=== PATIENT | female | born 1940 | race Caucasian/White ===

== ENCOUNTER → 2018-07-22 11:22 | Outpatient (CLI) | payer MEDICARE, OTHER, SELFPAY ==
[2016-10-27 14:29] VITALS: BMI 29.0
[2018-07-22 11:45] LABS: Absolute Lymphocyte Count 1.31 X10^3/ul (0.83-4.51); Absolute Neutrophil Count 1.4 X10^3/uL (2.0-7.7); Basophil# 0.05 X10^3/uL; Basophil% 1.3 % (0-1); Eosinophil# 0.25 X10^3/uL; Eosinophils% 6.6 % (0-5); Hematocrit 34.3 % (37-47); Lymphocyte # 1.31 X10^3/ul (4.0); Lymphocyte % 34.4 % (19-41); Mean Corp Hgb Conc 32.1 g/gl (32-36); Mean Corpuscular Hgb 28.9 pg (27.0-32.0); Mean Platelet Vol. 11.8 fl (6.2-12.0); Monocyte# 0.81 X10^3/uL; Monocyte% 21.3 % (0-10); Neutrophil # 1.38 X10^3/uL (2.7-7.7); Neutrophil % 36.1 % (47-70); Platelet Count 109 K/mm3 (150-450); RBC Distribution Width CV 14.1 % (11.6-14.6); RBC Distribution Width SD 45.4 fl (35.1-43.9); Red Blood Count 3.81 M/mm3 (4.2-5.4); White Blood Count 3.8 K/mm3 (4.4-11.0)
[2018-07-22 11:46] LABS: POSITIVE COUNT NO; POSITIVE DIFFERENTIAL NO; POSITIVE MORPHOLOGY NO
== END ==
PROVIDERS: PCP Internal Medicine; Visit Provider Internal Medicine Hematology & Oncology
DX: C50.412 Malignant neoplasm of upper-outer quadrant of left female breast (principal)
CPT/HCPCS: 85025

== ENCOUNTER 2019-01-15 09:17 | Day surgery (SDC) | payer MEDICARE, SELFPAY ==
--- NOTE | 2019-01-12 12:03 | HP.PCM_ITS ---
Problem List (1) Endometrial mass Status: Acute History and Physical Date of Admission: 01/15/19 Yumi Mckeon Physician [employer] SAL[employer] CONSULTANT H&P Signed Encounter Date: 01/12/2019 Expand All Collapse All Hide copied text Sadi for details Kayy Trujillo is a 78 year old female who presents for pre op visit. Pt had Pelvic us due to pain- incidentally found to have endometrial mass with vascular flow present. Pt has h/p bone mets from primary breast cancer and is currently enrolled in clinical trial. Pt denies any vaginal bleeding at this time. Pt denies CP, SOB, dizziness. ? ? PAST?MEDICAL?HISTORY PAST MEDICAL HISTORY Diagnosis Date ? Bone cancer (HCC) ? ? GERD (gastroesophageal reflux disease) ? ? PMH - PAST MEDICAL HISTORY OF 2002 ? BREAST CANCER ? S/P left mastectomy ? ? for breast cancer ? PAST?SURGICAL?HISTORY PAST SURGICAL HISTORY Procedure Laterality Date ? COLONOSCOP W/ OR W/O BRSH SPEC ? 06/26/2018 ? Colonoscopy ? HYSTEROSCOPY BX W/WO D&C ? 04/2012 ? PAST SURGICAL HISTORY OF ? 2002 ? MASTECTOMY left ? REMOVAL OF TONSILS,<12 Y/O ? ? ? Tonsillectomy ? TUNNEL VAD W SUB Q PORT >=5 Right 12/10/2016 ? Right IJ power port 6 Fr ? FAMILY?HISTORY FAMILY HISTORY Problem Relation Age of Onset ? Aneurysm Mother ? ? Hypertension Father ? ? Coronary Artery Disease Father ? ? Cancer Paternal Aunt ? ? Cancer Paternal Aunt ? ? Coronary Artery Disease Sister ? ? irregular heartbeat ? Stroke Brother ? ? 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 CURRENT?MEDICATIONS ? Current Outpatient Medications: EXEMESTANE ORAL Take by mouth. potassium phosphate, monobasic (K-PHOS ORIGINAL) 500 mg tablet Take 1 tablet by mouth three times daily. levothyroxine (SYNTHROID) 50 mcg tablet Take 1 tablet by mouth once daily. heparin 100 unit/mL injection Access implanted vascular access device (IVAD) as needed for flush, blood draw or treatment. Before de-accessing port, flush with 10-20ml normal saline and follow with 5 mL heparin (100 units/mL) (if no heparin allergy). De-access port on treatment completion. OTC NUTRITIONAL SUPPLEMENT [employer] nutritional supplements vitamin b complex tab Take 1 tablet by mouth once daily. ondansetron (ZOFRAN) 8 mg tablet Take 1 tablet by mouth every 8 hours as needed. cetirizine (ZYRTEC) 10 mg tablet Take 10 mg by mouth once daily as needed. omeprazole (PRILOSEC) 20 mg capsule Take 20 mg by mouth once daily as needed. miSOPROStol (CYTOTEC) 200 mcg tablet Take two tablets PO night before procedure and two tablets morning of procedure 0.9 % sodium chloride (0.9% NACL) Access implanted vascular access device (IVAD) as needed for flush, blood draw or treatment.Flush IVAD with 10-20 mL NS every 4 weeks and PRN when IVAD not in use. COMPOUNDED PRESCRIPTION LEFT BREAST MASTECTOMY PROSTHESIS BRAS DX Z90.12 ? No current facility-administered medications for this visit. Allergies As of Date: 01/12/2019 Allergen Noted Reaction ENVIRONMENTAL [OTHER] 11/16/2005 IODINE 11/16/2005 Swelling and Shortness of Breath LATEX, NATURAL RUBBER 11/09/2011 Itching NOVACAINE [OTHER] 11/16/2005 PROCAINE 10/24/2016 Swelling ? Fully Assessed 01/12/2019 ? ? REVIEW OF SYSTEMS Abdomen: intermittent pelvic pain Bladder: no dysuria .. Expanded ROS: GENERAL: Negative for fever Allergies and current medication updated:Yes ? EXAM: BP 132/60 Ht 5' 1.5 (1.56m) Wt 144 lb (65.3kg) BMI 26.77 kg/(m^2). ? GENERAL: pleasant, female in no apparent distress HEENT: Normocephalic and atraumatic NECK: full range of motion DERMATOLOGY: Normal, without lesions and non-icteric CARDIAC: regular rate with occasional ectopic beats CHEST: Clear to auscultation Normal inspiratory effort NEURO: alert and oriented x3,exam grossly non-focal ? ASSESSMENT AND PLAN: Encounter Diagnosis ? ? ICD-10-CM ? 1. Endometrial mass N94.89 ? ? 2. Pt has been counseled on risks/benefits and alternatives of surgery including but not limited to anesthesia, bleeding, infection, injury to pelvic structures including bowel, bladder, ureters and vessels. Pt wishes to proceed with surgery at this time. 3. Pt understands risks- would like to proceed- does have h/o METS but wants to know what mass is- malignant or benign. Reviewed would notify Oncologist of results 4. Pt has medication for pain post op 5. Cytotec ordered 6. ? Yumi Castellon MD ?
[2019-01-15] VITALS (7 sets, daily range): BP systolic 94–110; BP diastolic 38–61; PULSE 68–83; RESP 14–16; TEMP 36.4–37.2; O2SAT 97–100; BMI 26.5
--- NOTE | 2019-01-15 | EMB_PTH ---
PATIENT: CAROLYN ACE [place] [facility] [id number] AGE/SX: 78/F ROOM: RE01/15/[address]: Dr. Yumi Castellon, MDDOB: 1940 BED: DIS: 01/15/2019 SPEC #: [id number] RECD: 01/15/19 13:06 STATUS: KAYLIN SUDHAKAR #: [id number] KULDEEP: 01/15/19 00:[address]: Yumi Castellon DEPT: SURGICAL PATHOLOGY RECD BY: Harlan Rodrigues ENTERED: 01/15/19 13:06 SP TYPE: ENDOM BX/C OTHR DR: Dr. Rena Sales MD Tissues: Endometrium, NOS Procedures: Surgery Specimen Level IV HEADER OPERATION: Hysteroscopy, D & C, Symphion PRE-OP DIAGNOSIS: Endometrial mass TISSUE SUBMITTED: Endometrial mass MICROSCOPIC DIAGNOSIS Endometrial mass, biopsy: Fragments of superficial endometrium with cystic atrophy. See comment. AM:ashley 01/16/19 COMMENT The fragments may represent portions of endometrial polyp. Clinical correlation is suggested. MICROSCOPIC DESCRIPTION Slides are reviewed. GROSS DESCRIPTION Received in fixative is one container labeled with the patient's name and designated endometrial mass. The specimen consists of multiple irregular fragments of light mcclain soft tissue that in aggregate measure 1.5 x 0.5 x 0.1 cm. The specimen is totally submitted in one cassette. / AM:ashley 01/15/19 TC:5 CPT: 56367
--- NOTE | 2019-01-15 09:39 | EKG12_ITS ---
Test Reason : PRE OP Blood Pressure : / mmHG Vent. Rate : 075 BPM Atrial Rate : 075 BPM P-R Int : 176 ms QRS Dur : 092 ms QT Int : 396 ms P-R-T Axes : 065 -10 035 degrees QTc Int : 442 ms Normal sinus rhythm Voltage criteria for left ventricular hypertrophy Abnormal ECG When compared with ECG of 23-OCT-2016 20:17, Fusion complexes are no longer Present Premature ventricular complexes are no longer Present Confirmed by PERCY JACKSON ([id number]), assistant production editor TO WILKERSON ([id number]) on 01/19/2019 4:55:42 PM Referred By: Yumi Castellon Confirmed By:SETH JACKSON
[2019-01-15 10:48] LABS: Anion Gap 4 (5-15); BUN 15 mg/dL (7-18); Calcium,Total 8.4 mg/dL (8.5-10.1); Chloride 107 mmol/L (98-107); Creatinine, Serum 0.68 mg/dL (0.55-1.02); EST Glomerular Filtration Rate 89 mL/min (>60); Est Glom Filt Rate - Afr Amer 107 mL/min (>60); Estimated Creatinine Clearance 35.55 ml/min; Glucose 88 mg/dL (74-106); Potassium 4.2 mmol/L (3.5-5.1); Sodium Level 140 mmol/L (136-145)
--- NOTE | 2019-01-15 11:25 | PCM.OPRPT ---
Problem List (1) Endometrial mass Status: Acute Report of Operation Date of Procedure: 01/15/19 Pre-Operative Diagnosis: endometrial mass Post-Operative Diagnosis: same Surgery/Procedure Performed:: hysteroscopy, D&C with symphion Description of Surgical Findings:: Atrophic endometrium with fundal endometrial mass- hard. small posterior mass. 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 She was given anesthesia. She was then placed in the [facility] where she was prepped and draped in the normal sterile fashion. Bladder drained with straight catheter approx 30cc. At this time the weighted speculum was placed in the posterior fornix of vagina. Single-tooth tenaculum was used to gently grasp the anterior lip the cervix. Gentle dilatation was performed once adequate dilatation of the cervix was achieved the hysteroscope using normal saline as a distention medium was placed. Atrophic endometrium noted with mass noted on fundal aspect and one posterior aspect. Tubal ostia visualized. Sypmhion used to remove portion of mass at fundal aspect and posterior- unable to get entire fundal mass due to location- reviewed with patient she is asymptomatic- no vaginal bleeding- wanted tissue diagnosis. At This time hysteroscopy was complete. This will be sent to pathology for evaluation. Procedure was deemed complete successful there are no complications. Anticipated normal postoperative course. Instrument lap count correct ?2. Vaginal Sweep was negative. Grafts/Implants Used: none - Complications none - Admit VTE Documentation VTE Present on Admission: Yes VTE Mechan Device Prophylaxis: SCD's VTE Pharm Prophylaxis ordered?: No
--- NOTE | 2019-01-15 11:30 | OP.PCM_ITS ---
Problem List (1) Endometrial mass Status: Acute Report of Operation Date of Procedure: 01/15/19 Pre-Operative Diagnosis: endometrial mass Post-Operative Diagnosis: same Surgery/Procedure Performed:: hysteroscopy, D&C with symphion Description of Surgical Findings:: Atrophic endometrium with fundal endometrial mass- hard. small posterior mass. 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 She was given anesthesia. She was then placed in the [facility] where she was prepped and draped in the normal sterile fashion. Bladder drained with straight catheter approx 30cc. At this time the weighted speculum was placed in the posterior fornix of vagina. Single-tooth tenaculum was used to gently grasp the anterior lip the cervix. Gentle dilatation was performed once adequate dilatation of the cervix was achieved the hysteroscope using normal saline as a distention medium was placed. Atrophic endometrium noted with mass noted on fundal aspect and one posterior aspect. Tubal ostia visualized. Sypmhion used to remove portion of mass at fundal aspect and posterior- unable to get entire fundal mass due to location- reviewed with patient she is asymptomatic- no vaginal bleeding- wanted tissue diagnosis. At This time hysteroscopy was complete. This will be sent to pathology for evaluation. Procedure was deemed complete successful there are no complications. Anticipated normal postoperative course. Instrument lap count correct ?2. Vaginal Sweep was negative. Grafts/Implants Used: none - Complications none - Admit VTE Documentation VTE Present on Admission: Yes VTE Mechan Device Prophylaxis: SCD's VTE Pharm Prophylaxis ordered?: No
--- NOTE | 2019-01-15 11:31 | DCINST_ITS ---
Discharge Diet: No Restrictions Discharge Activity: Return to Normal Activity, May Shower, May Take a Tub Bath - in 2 weeks. Call your doctor if you observe: Fever of 101 or Higher, Using more than one pad per hour, Uncontrolled pain Allergies/Adverse Reactions: Allergies iodine Allergy (Verified 01/09/19 08:10) Swelling Latex, Natural Rubber Allergy (Verified 01/09/19 08:10) Rash procaine [From Novocain] Allergy (Verified 01/09/19 08:10) swelling, pass out Medications to take at Discharge Cetirizine HCl [Zyrtec] 10 mg PO DAILY PRN 01/09/19 Entinostat 1 tab PO Q7D 01/09/19 Exemestane 25 mg PO DAILY 01/09/19 Folic Acid/B Cmplx C/Rice Bran [Vitamin B-Complex & C Caplet] 1 each PO DAILY 01/09/19 Levothyroxine Sodium [Synthroid] 50 mcg PO DAILY 01/09/19 Neolise 1 pkg PO DAILY 01/09/19 Omeprazole [Prilosec] 20 mg PO PRN PRN 01/09/19 Ondansetron HCl [Zofran] 4 mg PO PRN PRN 01/09/19 Potassium Phosphate,Monobasic [K-Phos Original] 500 mg PO TID 01/09/19 Zometa 1 dose SC Q3M 01/09/19 Primary Care Physician: Rena Sales MD [Primary Care Provider] - Test Results: Test results from this visit will be discussed in further detail at your follow- up appointment, if applicable. Please Follow Up With: Yumi Castellon MD When: as scheduled in 2 weeks
[2019-01-15] MEDS: HYDROcodone Bitartrate/Apap 5/325 Tablet PO (12:11)
== END 2019-01-15 14:10 | disposition home or self-care (01) ==
LOC: SDC 09:23 → AC 09:25
PROVIDERS: Family Provider Internal Medicine; PCP Internal Medicine; Referring Provider Obstetrics & Gynecology; Visit Provider Obstetrics & Gynecology
PROC: 0UB98ZZ Excision of Uterus, Via Natural or Artificial Opening Endoscopic (ICD-10-PCS; CPT 58558; principal; 2019-01-15 10:25)
DX: N94.89 Other specified conditions associated with female genital organs and menstrual cycle (principal); N85.8 Other specified noninflammatory disorders of uterus; C50.919 Malignant neoplasm of unspecified site of unspecified female breast; C78.02 Secondary malignant neoplasm of left lung; C79.51 Secondary malignant neoplasm of bone; Z90.12 Acquired absence of left breast and nipple; K21.9 Gastro-esophageal reflux disease without esophagitis; Z82.49 Family history of ischemic heart disease and other diseases of the circulatory system; Z88.8 Allergy status to other drugs, medicaments and biological substances
CPT/HCPCS: 58558; 80048; 88305; 93005; J7120; A4216

== ENCOUNTER → 2019-08-03 09:52 | Outpatient (CLI) | payer MEDICARE, SELFPAY ==
[2019-01-15 09:44] VITALS: BMI 26.5
--- NOTE | 2019-08-03 09:54 | RAD_ITS ---
STUDY: X-RAY - ESOPHAGUS (BARIUM SWALLOW) WITH FLUOROSCOPY REASON FOR EXAM: Female, 79 years old. Dysphagia for solids. TECHNIQUE: 23 fluoroscopic view(s) of the esophagus were obtained following swallowing of barium. FLUOROSCOPY TIME (if supplied): (0:47) minutes/seconds COMPARISON: None. FINDINGS: There is no demonstrated esophageal foreign body. There is no demonstrated stricture or mucosal abnormality. Small sliding hiatal hernia without reflux. A circumferential web is seen at the gastroesophageal junction. The patient ingest a 12 mm tablet at bedtime. The tablet is trapped at the gastroesophageal junction. There is atherosclerotic calcification of the aortic arch with tortuosity of the descending aorta. Normal visualized pulmonary parenchyma. There are diffuse degenerative changes of the visualized thoracic spine. RAD/Esophagus Only IMPRESSION: Small sliding hiatal hernia with web formation and trapping of the 12 mm tablet of barium at the gastroesophageal junction. Electronically Signed: Shola Machuca, at 12:22 EST , Service support ,
== END ==
PROVIDERS: Family Provider Internal Medicine; PCP Internal Medicine; Referring Provider Internal Medicine Hematology & Oncology; Visit Provider Internal Medicine Hematology & Oncology
DX: R13.10 Dysphagia, unspecified (principal); C50.919 Malignant neoplasm of unspecified site of unspecified female breast; C34.90 Malignant neoplasm of unspecified part of unspecified bronchus or lung; C79.9 Secondary malignant neoplasm of unspecified site
CPT/HCPCS: 74220

== ENCOUNTER → 2020-08-01 13:15 | Outpatient (CLI) | payer MEDICARE, SELFPAY ==
[2019-01-15 09:44] VITALS: BMI 26.5
[2020-08-01 13:42] LABS: Hematocrit 35.7 % (37-47); Hemoglobin 11.3 g/dL (12.0-15.0); Mean Corp Hgb Conc 31.7 g/dL (32-36); Mean Corpuscular Hgb 30.8 pg (27.0-32.0); Mean Corpuscular Volume 97.3 fL (81-99); Mean Platelet Vol. 9.9 fl (6.2-12.0); Platelet Count 247 K/mm3 (150-450); RBC Distribution Width CV 14.3 % (11.6-14.6); RBC Distribution Width SD 50.9 fl (35.1-43.9); Red Blood Count 3.67 M/mm3 (4.2-5.4); White Blood Count 3.6 K/mm3 (4.4-11.0)
[2020-08-01 13:57] LABS: International Normalized Ratio 1.1; Prothrombin Time (Protime)PT. 13.3 SECONDS (11.7-14.9)
[2020-08-01 13:58] LABS: Partial Thromboplast Time 35.3 Seconds (24.1-36.2)
== END ==
LOC: MEDOUTP 08-02 10:34 → EN 08-02 10:34 → MEDOUTP 08-02 10:34
PROVIDERS: PCP Internal Medicine; Referring Provider Internal Medicine Critical Care Medicine; Visit Provider Internal Medicine Critical Care Medicine
DX: J84.9 Interstitial pulmonary disease, unspecified (principal); N94.89 Other specified conditions associated with female genital organs and menstrual cycle
CPT/HCPCS: 36415; 36591; 85027; 85610; 85730; A4216

== ENCOUNTER 2020-08-05 10:58 | Day surgery (SDC) | payer MEDICARE, SELFPAY ==
[2020-08-05] VITALS (8 sets, daily range): BP systolic 110–150; BP diastolic 54–80; PULSE 72–78; RESP 16; TEMP 36.5–37.2; O2SAT 95–98; BMI 23.1
--- NOTE | 2020-08-05 | FLU_PTH ---
PATIENT: CAROLYN ACE LOC: [place] U#:[id number] AGE/SX: 80/F ROOM: RE08/05/[address]: Dr. Carlo Martinez MD : 1940 BED: DIS: 08/05/2020 SPEC #: [id number] RECD: 08/05/20 12:44 STATUS: KAYLIN REQ #: [id number] KULDEEP: 08/05/20 00:[address]: Carlo Martinez DEPT: CYTOLOGY RECD BY: Harlan Rodrigues ENTERED: 08/08/20 08:35 SP TYPE: Fluid OTHR DR: Dr. Rena Sales MD Tissues: Bronchus of right middle lobe Procedures: Special Stain Group II Special Stain Group I Surgery Specimen Level IV AFB Stain (control) Cytospin Fluid HEADER OPERATION: Bronchoscopy PRE-OP DIAGNOSIS: Interstitial lung disease; breast cancer TISSUE SUBMITTED: BAL RML DIAGNOSIS CYTOLOGY Bronchioalveolar lavage, right middle lobe (cytospin and cell block): Negative for malignant cells. Negative for acid fast bacilli. Negative for fungal organisms. See comment. AM:ashley 08/09/20 COMMENT AFB, GMS and PC stains with matched control was used in the evaluation of this case. CYTOLOGY STUDY Slides are reviewed. CYTOLOGY GROSS Received is 20 ml of pink, cloudy fluid labeled with the patient's name and and designated per the requisition as BAL RML. Submitted for cytology preparation including cell block. / ashley 08/08/20 TC:5 CPT: 87755, 79928, [id number]
[2020-08-05] MEDS: Lactated Ringers 1,000 ML 100 ML IV (11:53)
--- NOTE | 2020-08-05 12:06 | HP.PCM_ITS ---
Problem List (1) History of tonsillectomy Status: Resolved (2) H/O mastectomy Status: Resolved (3) Interstitial lung disease Status: Acute (4) Severe malnutrition Status: Chronic (5) Schatzki's ring Status: Chronic (6) Breast cancer Status: Chronic (7) Breast cancer metastasized to bone Status: Chronic History and Physical Date of Admission: 08/05/20 Patient seen and examined just prior to bronchoscopy. No new questions were asked. Patient is n.p.o. and is ready to proceed with the procedure. There is no addendum to the following note. Did discuss with the at the bedside about plan of care following the procedure. Results will be sent to Dr. Kebede directly. Consent was reviewed along with complications and benefits just prior to proceeding with preparation for bronchoscopy. Assessment & Plan Problems 1. Interstitial lung disease J84.9 2. Breast cancer C50.919 3. Breast cancer metastasized to bone C50.919; C79.51 Plan Unclear etiology at this time. 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 In order to confirm this, a bronchoscopy with BAL to rule out occult infection would be appropriate. Patient does not have significant mediastinal lymphadenopathy that would indicate EBUS is necessary. After review the risks, benefits and alternatives, patient is agreeable to proceeding with bronchoscopy. Pulmonary function test and walking oximetry should also be obtained. 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 Agree that immunotherapy should be held in the interim. Continue to hold immunotherapy. Consider prednisone 40 mg daily for 30 days. Obtain complete PFT, walking oximetry and bronchoscopy with BAL. Orders Orders: Bronchoscopy Today J84.9 Partial Thromboplast Time Today J84.9, N94.89 Prothrombin Time w/INR Today J84.9, N94.89 CBC-Complete Blood Cnt No Diff Today J84.9 Simple Pulmonary Exercise Test Today J84.9 Pulmonary Function Test (Comp) Today J84.9 Plan Detail Follow Up 2 Months (BWA) HPI Interstitial lung disease: Chief Complaint: Abnormal CT scan Details: Patient is a 80-year-old female, currently under the care of Dr. Kebede and Dr. Sterling, who presents for evaluation secondary to an abnormal CT scan. Patient reports that she has had progressive shortness of breath over the last 1 to 2 months. Patient is also reported a paroxysmal dry cough. Patient is currently receiving chemotherapy secondary to advanced age breast cancer and reportedly has been doing well. Patient had a CT scan which showed rapid progression of interstitial infiltrates over the last 2 months. There is some concern that this may be related to chemotherapy and pulmonary opinion was requested. Patient reports that she does not have any history of previous lung pathology. Patient has not required any inhalers previously. Patient denies any cardiovascular history. Patient does report that she has been admitted to the hospital with severe sepsis secondary to pneumococcus, but was able to make it to baseline prior to this onset of symptoms. Patient is not reporting any lower extremity edema, pain with urination or sleep complaints. Patient does state that she was tested at the oncologist office and was told that she does not need oxygen. Patient is unclear if she has ever had a pulmonary function test previously. 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 Documentation reviewed 20 pages of documentation were reviewed prior to the office visit. Patient has been seen by Dr. Kebede on 07/26/2020 secondary to concern for pneumonitis. Patient reportedly has a history of ER positive metastatic breast cancer stage III that is currently on exemestane and Ribociclib and had a CT scan last month showing interstitial changes without honeycombing and no mediastinal adenopathy. Patient did not have increased lumbar vertebral metastasis. Patient reportedly has had increased shortness of breath with exertion was noted to have a saturation of 92%. Patient did have a CBC, but no significant eosinophilia. CT chest (06/16/2020): Personally reviewed using CD. Multiple areas of bronchiectasis with interstitial infiltrates noted. Previous CT scan was not available for review. Intake Vital Signs 08/01/20 Weight: 55.792 kg 08/01/20 BP 163/79 H 08/01/20 Blood Pressure Location Rt brachial 08/01/20 Position Sitting 08/01/20 Respiration 18 08/01/20 Pulse 85 08/01/20 Pulse Source Monitor 08/01/20 Temp 36.3 C L 08/01/20 Temperature Source Tympanic 08/01/20 Pulse Oximetry (%) 93 08/01/20 Oxygen Delivery Method room air Intake Visit Reasons: Interstitial lung disease Allergies iodine Allergy (Verified 08/01/20 11:25) Swelling Latex, Natural Rubber Allergy (Verified 08/01/20 11:25) Rash procaine [From Novocain] Allergy (Verified 08/01/20 11:25) swelling, pass out Medications Cetirizine HCl [Zyrtec] 10 mg PO DAILY PRN 01/09/19 [History Confirmed 08/01/20] Exemestane 25 mg PO DAILY 01/09/19 [History Confirmed 08/01/20] Levothyroxine Sodium [Synthroid] 50 mcg PO DAILY 01/09/19 [History Confirmed 08/01/20] Omeprazole [Prilosec] 20 mg PO PRN PRN 01/09/19 [History Confirmed 08/01/20] clopidogrel 75 mg tablet 75 mg PO DAILY 08/01/20 [History Confirmed 08/01/20] digoxin 125 mcg (0.125 mg) tablet 125 mcg PO DAILY 08/01/20 [History Confirmed 08/01/20] ergocalciferol (vitamin D2) 1,250 mcg (50,000 unit) capsule 1,250 mcg PO QWEEK 08/01/20 [History Confirmed 08/01/20] heparin, porcine (PF) 100 unit/mL (1 mL) intravenous solution unit INTRA-CATH 08/01/20 [History] metoprolol succinate 50 mg capsule sprinkle, ext. release 24 hr 50 mg PO DAILY 08/01/20 [History Confirmed 08/01/20] polysaccharide iron complex 150 mg iron capsule 150 mg PO DAILY 08/01/20 [History Confirmed 08/01/20] PFSH Medical History (Updated 08/01/20 @ 11:26 by Loraine Haynes) Endometrial mass (Acute) Interstitial lung disease (Acute) Dehydration (Acute) Hypokalemia (Acute) Severe malnutrition (Chronic) Schatzki's ring (Chronic) CAP (community acquired pneumonia) due to Pneumococcus (Acute) Severe sepsis (Acute) Pleural effusion (Acute) Breast cancer (Chronic) Breast cancer metastasized to bone (Chronic) Acute respiratory failure with hypoxemia (Acute) SOB (shortness of breath) (Acute) Surgical History (Updated 08/01/20 @ 11:26 by Loraine Haynes) History of tonsillectomy (Resolved) H/O mastectomy (Resolved) Family History (Updated 08/01/20 @ 11:27 by Loraine Haynes) Aunt Cancer Social History (Updated 08/01/20 @ 15:[address] Carlo Martinez MD) Smoking Status: Never smoker Review of Systems Resp Respiratory: Yes as per HPI Exam Const Constitutional: Positive conversant, cooperative, in no acute respiratory distress, good hygiene, frail appearing and thin Head Head: Yes normocephalic, Yes atraumatic, No cyanosis of lips/distal nose Eyes Eye: Positive clear conjunctiva; negative nystagmus, scleral abnormality or cataract present Ears Ear: Positive hearing normal and external ears normal; negative hard of hearing Nose Nose: Yes external nose normal, No nasal polyp, Yes septum normal Mouth Mouth: Positive oral mucosae normal and no lesions; negative oral thrush present Mallampati Score: II: Mallampati Score Neck Neck: Positive normal visual inspection, full ROM and trachea midline; negative lymphadenopathy or JVD Chest Wall Chest: Positive normal inspection of the chest and symmetric chest movement; negative crepitus or tenderness Resp lung sounds: Positive rales rales: Positive bilateral and lower and normal expiratory time; negative wheezes, wheeze present on forced exhalation, rhonchi, dullness to percussion or use of accessory muscles Cardio Cardiac: Positive regular rate, regular rhythm, S1 normal and S2 normal; negative murmur, rub or gallop GI GI: Positive normal to inspection and normal bowel sounds; negative distended, ascites or epigastric tenderness Genitourinary: Positive deferred Musc Musculoskeletal: Positive steady gait; negative using an assistive device for ambulation, kyphosis or scoliosis Skin Pulmonary Skin Exam: Positive intact; negative lesion, rash, ulcers or erythema Pulses Pulse: Yes radial pulses present Extremities Extremities: Yes capillary refill normal, No clubbing, No cyanosis, No edema Neuro Neurologic: Yes no focal neuro deficits, Yes conversant, Yes cooperative, Yes normal cognition, Yes normal coordination, Yes normal concentration, Yes understands questions Lymph Lymphatic: No lymphadenopathy Psych Appearance: Positive grossly normal Mental Status: Positive mental status grossly normal Mood: Positive congruent mood Affect: Positive normal affect Coding Level of Care Code Off vis,new,level 5 Diagnoses Interstitial lung disease J84.9 Breast cancer C50.919 Breast cancer metastasized to bone C50.919; C79.51
--- NOTE | 2020-08-05 12:38 | OP.BRONCH_ITS ---
Patient Name: Kayy Trujillo Procedure Date: 08/05/2020 12:05 PM Date of : 1940 Age: 80 Procedure: Bronchoscopy Indications: Interstitial lung disease, Diffuse lung disease Providers: Carlo Martinez MD Referring MD: Carlo Martinez MD Medicines: See the Anesthesia note for documentation of the administered medications Complications: No immediate complications Procedure: Pre-Anesthesia Assessment: - A History and Physical has been performed. The patient's medications, allergies and sensitivities have been reviewed. - The risks and benefits of the procedure and the sedation options and risks were discussed with the patient. All questions were answered and informed consent was obtained. - Patient identification and proposed procedure were verified prior to the procedure by the physician, the nurse and the bus matron. The procedure was verified in the endoscopy suite. After I obtained informed consent, the scope was passed under direct vision. Throughout the procedure, the patient's blood pressure, pulse, and oxygen saturations were monitored continuously. The bronchoscope was introduced through the mouth and advanced to the tracheobronchial tree. The procedure was accomplished without difficulty. The patient tolerated the procedure well. The total duration of the procedure was 6 minutes. Findings: The oropharynx appears normal. The larynx appears normal. The vocal cords appear normal. The subglottic space is normal. The trachea is of normal caliber. The catarino is sharp. The tracheobronchial tree was examined to at least the first subsegmental level. Bronchial mucosa and anatomy are normal; there are no endobronchial lesions, and no secretions. Bronchoalveolar lavage was performed in the RML medial segment (B5) of the lung and sent for cell count, bacterial culture, viral smears & culture, and fungal & AFB analysis and cytology, routine cytology, bacterial, AFB, fungal and viral analysis and aerobic culture. 120 mL of fluid were instilled. 60 mL were returned. The return was clear. There were no mucoid plugs in the return fluid. Impression: - Interstitial lung disease - Diffuse lung disease - The airway examination was normal. - Bronchoalveolar lavage was performed. - The airway examination was normal. Recommendation: - The patient will be observed post-procedure, until all discharge criteria are met. - Await BAL results. - Follow up with referring physician as previously scheduled. Procedure Code(s): --- Professional --- 69079, Bronchoscopy, rigid or flexible, including fluoroscopic guidance, when performed; with bronchial alveolar lavage Diagnosis Code(s): --- Professional --- R91.8, Other nonspecific abnormal finding of lung field J84.9, Interstitial pulmonary disease, unspecified CPT copyright 2017 [employer]. All rights reserved. The codes documented in this report are preliminary and upon conductor pullman review may be revised to meet current compliance requirements. MD Carlo Whitt MD 08/05/2020 12:37:50 PM This report has been signed electronically. Number of Addenda: 0 Note Initiated On: 08/05/2020 12:05 PM
[2020-08-05 12:55] LABS: Cytology, Body Fluid / CSF SEE PATHOLOGY REPORT
[2020-08-05 14:35] LABS: Appearance/Body Fluid SL CLDY; Color/Body Fluid SLIGHTLY PINK; Source- Body Fluid BRONCHIAL LAVAGE
[2020-08-05 14:49] LABS: Red Cell Count/Body Fluid 144 /mm3
[2020-08-05 14:50] LABS: White Blood Count/Body Fluid 368 /mm3
[2020-08-05 14:52] LABS: Body Fluid QC Type(s) BF1Q; Lymphocytes 23 %; Monocytes 4 %; Neutrophil (Segs) 11 %; Other Cell Type/BF 62 %
[2020-08-08 14:01] LABS: Pathologist Comment/Body Fluid Reviewed
== END 2020-08-05 14:01 | disposition home or self-care (01) ==
LOC: EN 10:59 → AC 11:00
PROVIDERS: Referring Provider Internal Medicine Critical Care Medicine; Visit Provider Internal Medicine Critical Care Medicine
PROC: 0BJ08ZZ Inspection of Tracheobronchial Tree, Via Natural or Artificial Opening Endoscopic (ICD-10-PCS; CPT 31622; principal; 2020-08-05 11:45)
DX: J84.9 Interstitial pulmonary disease, unspecified (principal); J98.4 Other disorders of lung; R91.8 Other nonspecific abnormal finding of lung field; E43 Unspecified severe protein-calorie malnutrition; C50.919 Malignant neoplasm of unspecified site of unspecified female breast; C79.51 Secondary malignant neoplasm of bone; Z17.0 Estrogen receptor positive status [ER+]; Z91.040 Latex allergy status
CPT/HCPCS: 31624; 87015; 87070; 87116; 87205; 87206; 87252; 87426; 88108; 88305; 88312; 88313; 89050; C9803; J7120; A4216; J2405

== ENCOUNTER → 2020-08-29 13:17 | Outpatient (CLI) | payer MEDICARE, SELFPAY ==
[2020-08-05 11:15] VITALS: BMI 23.1
--- NOTE | 2020-08-31 08:27 | PFT ---
INTRODUCTION: The patient is a 80-year-old female that presents for pulmonary function studies secondary to a diagnosis of cancer. Respiratory therapy reports good patient effort. Bronchodilators were used during testing. INTERPRETATION: Forced expiration spirometry demonstrates no evidence of a large airways obstructive ventilatory defect. There was, however, a significant response to aerosolized bronchodilators. Spirograms are of good quality and plateau normally. Body plethysmography was performed and revealed a decreased TLC to 3.33 L, 79% of predicted, indicative of a mild restrictive ventilatory impairment. Diffusing capacity by single breath CO is reduced at 72% of predicted. IMPRESSION: Mild restrictive ventilatory impairment with symmetric reduction in diffusing capacity. Incidental bronchodilator response was also noted.
== END ==
PROVIDERS: Referring Provider Internal Medicine Critical Care Medicine; Visit Provider Internal Medicine Critical Care Medicine
DX: J84.9 Interstitial pulmonary disease, unspecified (principal)
CPT/HCPCS: 94060; 94726; 94729

== ENCOUNTER → 2020-08-31 11:18 | Outpatient (CLI) | payer MEDICARE, SELFPAY ==
[2020-08-05 11:15] VITALS: BMI 23.1
[2020-08-31 11:40] VITALS: PULSE 69; PULSE 71; PULSE 88; PULSE 89; PULSE 90; PULSE 91; PULSE 92; O2SAT 96; O2SAT 97; O2SAT 98
--- NOTE | 2020-09-01 10:29 | PCM.PSN.6M ---
PSN 6 Minute Walk Test - 6 Minute Walk Test 6 Minute Walk Test: 6 Minute Walk Test PSN:6-Minute Walk Test Start: 08/31/20 11:40 Freq: Status: Active Protocol: RESP.[id number] Document 08/31/20 11:40 GINA (Rec: 08/31/20 11:43 GINA [id number]) 6 Minute Walk Test Date Performed 08/31/20 Time Performed 11:15 Height 5 ft 1 in Weight: 123 lb Weight in Pounds 123.[address]: Carlo Martinez Assistive device used: None Pre-test Oxygen Delivery Method Room Air Pulse Ox (%) 96 Pulse Rate (60-100 beats/min) 69 Dyspnea Keven Scale (0-10) 0.5 Exertion Keven Scale (6-20) 6 1st minute Oxygen Delivery Method Room Air Pulse Ox (%) 97 Pulse Rate (60-100 beats/min) 88 2nd minute Oxygen Delivery Method Room Air Pulse Ox (%) 96 Pulse Rate (60-100 beats/min) 90 3rd minute Oxygen Delivery Method Room Air Pulse Ox (%) 97 Pulse Rate (60-100 beats/min) 92 4th minute Oxygen Delivery Method Room Air Pulse Ox (%) 97 Pulse Rate (60-100 beats/min) 89 5th minute Oxygen Delivery Method Room Air Pulse Ox (%) 97 Pulse Rate (60-100 beats/min) 91 6th minute Oxygen Delivery Method Room Air Pulse Ox (%) 97 Pulse Rate (60-100 beats/min) 90 Dyspnea Keven Scale (0-10) 3 Exertion Keven Scale (6-20) 12 Post-test Oxygen Delivery Method Room Air Pulse Ox (%) 98 Pulse Rate (60-100 beats/min) 71 Full Laps Walked 10 Partial Lap, Number of Tiles Walked 51 Total Distance Walked (ft) 641 - Interpretation Interpretation: The patient ambulated 641 feet over the course of 6 minutes beginning on room air without assistive devices or breaks. Pretesting oxygen saturation was noted to be 96% on room air. With ambulation, the fuad oxygen saturation was 96%. Although there was evidence of impaired walk distance, there was no significant exertional oxygen desaturation. - Recommendations Recommendations: There is no indication for the use of supplemental oxygen at this time.
== END ==
PROVIDERS: Referring Provider Internal Medicine Critical Care Medicine; Visit Provider Internal Medicine Critical Care Medicine
DX: J84.9 Interstitial pulmonary disease, unspecified (principal)
CPT/HCPCS: 94618